=== PATIENT | female | born 1940 | race Caucasian/White ===

== ENCOUNTER 2017-06-06 10:01 | Emergency (ER) | payer OTHER ==
--- NOTE | 2017-06-06 10:35 | EDPHY ---
H & P Stated Complaint: RLQ/back pain Time Seen by Provider: 06/06/17 10:35 HPI/ROS: CHIEF COMPLAINT: Right lower quadrant pain HISTORY OF PRESENT ILLNESS: The patient presents to the ED with acute right lower quadrant pain which began approximately an hour prior to arrival. The patient denies any nausea, vomiting, diarrhea or dysuria. Her past medical history is significant for appendicitis. The patient reports she has multiple medication allergies. The patient takes no regular prescription medications. She has not had no history of fever, cough or congestion. She denies significant constipation. The patient reports her pain is currently an 8/10. The patient is declining an IV, laboratory testing or IV pain medications. REVIEW OF SYSTEMS: A comprehensive 10 point review of systems is otherwise negative aside from elements mentioned in the history of present illness. Source: Patient Exam Limitations: No limitations - Personal History Current Tetanus/Diphtheria Vaccine: Yes Current Tetanus Diphtheria and Acellular Pertussis (TDAP): Yes Tetanus Vaccine Date: will not take - Medical/Surgical History Hx Asthma: Yes Hx Chronic Respiratory Disease: No Hx Diabetes: No Hx Cardiac Disease: No Hx Renal Disease: No Hx Cirrhosis: No Hx Alcoholism: No Hx HIV/AIDS: No Hx Splenectomy or Spleen Trauma: No Other PMH: CVA with left sided weakness, Right THR, Appendectomy, HTN, Multi allergies/sensitivities, speed shock, weak kidneys, [employer] surg - Social History Smoking Status: Never smoked - Physical Exam Exam: General Appearance: Alert, no distress Eyes: Pupils equal and round no pallor or injection ENT, Mouth: Mucous membranes moist Respiratory: There are no retractions, lungs are clear to auscultation Cardiovascular: Regular rate and rhythm Gastrointestinal: Minimal tenderness to palpation right lower quadrant, minimal right CVA tenderness Neurological: A&O, normal motor function, normal sensory exam, normal cranial nerves Skin: Warm and dry, no rashes Musculoskeletal: Neck is supple nontender Extremities: symmetrical, full range of motion Constitutional: Initial Vital Signs Temperature (C) 36.8 C 06/06/17 10:08 Heart Rate 64 06/06/17 10:08 Respiratory Rate 22 H 06/06/17 10:08 O2 Sat (%) 94 06/06/17 10:08 O2 Delivery Mode Nasal Cannula Allergies/Adverse Reactions: cortisone [Cortisone] Allergy (Unknown, Verified 01/25/13 09:24) adhesive Allergy (Verified 03/16/14 18:10) latex Allergy (Verified 03/16/14 18:10) NSAIDS (Non-Steroidal Anti-Inflamma Allergy (Verified 03/27/14 23:31) STEROIDS Allergy (Unknown, Uncoded 01/25/13 09:24) BARBITURATE Allergy (Uncoded 01/25/13 09:24) MOLDS Allergy (Uncoded 03/16/14 18:14) NYCINS Allergy (Uncoded 01/25/13 09:24) POLLENS Allergy (Uncoded 03/16/14 18:14) Home Medications: Medication Instructions Recorded Herbals/Supplements -Info Only 1 each PO AD 06/28/13 Medical Decision Making - Diagnostics Imaging Results: Imaging Impressions Abdomen/Pelvis CT 06/06/17 10:58 Impression: 1. No hydronephrosis or ureteral calculi to explain pain. 2. Constipation. 3. Equivocal rectal mass at the anal verge versus stool. 4. Cholelithiasis. No CT evidence of acute cholecystitis. 5. Demineralization. No acute compression fracture. Findings discussed with Emergency Department physician, Dr. Suleman Loo on June 06, 2017 at 1140 hours. Attention: This CT examination is specifically designed to evaluate patients who are clinically suspected of having acute obstructive uropathy. This examination does not use radiographic contrast, and as such, provides only a limited evaluation of the abdomen, pelvis and retroperitoneum. If there is further clinical suspicion for pathological conditions other than obstructive uropathy, a complete CT evaluation of the abdomen and pelvis utilizing intravenous, oral, and rectal contrast should be considered. ED Course/Re-evaluation: The patient presents to the ED for evaluation of acute right lower quadrant pain which began prior to arrival. The patient has a mild tenderness noted on examination. The patient's vital signs are stable. The patient was taken for noncontrast CT scan of the abdomen pelvis which demonstrates constipation but no evidence of obvious ureterolithiasis or right-sided at all pathology. The patient's urine dipstick is negative for evidence of infection or hematuria. I re-evaluated the patient at 12:40 p.m.. She reports she is currently pain- free. Her abdominal examination is reassuring. At this point time I do not feel that further workup is indicated. She is comfortable being discharged home and returning to the ED for any recurrent abdominal pain. Differential Diagnosis: Differential diagnosis considered includes perforation, obstruction, ureterolithiasis, pyelonephritis, constipation Departure - Departure Disposition: Home, Routine, Self-Care Clinical Impression: Right lower quadrant abdominal pain Condition: Good Instructions: Abdominal Pain (ED) Additional Instructions: Sometimes we are unable to diagnose an obvious cause of abdominal pain in the Emergency Department. Based upon our evaluation today, we see no obvious explanation for your pain. Because more serious conditions can be difficult to diagnose early in the course of their presentation, we ask that you return to the Emergency Department in 8-12 hours for a recheck if you are still having pain. This is necessary to exclude the development of a more serious condition such as appendicitis or other intra-abdominal emergency. In the event your pain markedly increases before that time or you develop intractable vomiting or fever return to the Emergency Department immediately. Referrals: SANDIP CORNELL [Medical Doctor] - As per Instructions
--- NOTE | 2017-06-06 13:00 | ASDISCHSUM ---
Discharge Information Plan Status:Home with No Needs Medically Cleared to Leave: Discharge Date: CM D/C Disposition:Home, Routine, Self-Care ADT D/C Disposition:Home, Routine, Self-Care Projected Discharge Date: Transportation at D/C:None or Unknown Discharge Delay Reason: Follow-Up Date: Discharge Slot: Final Diagnosis: Placement Information Patient Contact Information Contact Name:MARIA ESTHER Relationship:Nat Address: Work Phone: City: [facility] Phone: State/[place] Code: Email: Financial Information Financial Class: Primary Plan Desc:MEDICARE OUTPATIENT Primary Plan Number:[id number] Secondary Plan Desc:[employer] Secondary Plan Number:[id number] Assessment Information LACE LACE Acuity / Level of Care Answers: No. Comorbidities - select Answers: Cerebrovascular disease all that apply Mild liver or renal disease Emergency dept visits in Answers: 1 last 6 months Score: 4 Date Signed: 06/06/2017 12:57 PM Electronically Signed By:Suyapa Killian RN Intervention Information
[2017-06-06 13:19] VITALS: PULSE 68; RESP 16; TEMP 97.9; O2SAT 95
== END 2017-06-06 13:19 | disposition home or self-care (01) ==
DX: R10.31 Right lower quadrant pain (principal); J45.909 Unspecified asthma, uncomplicated; I10 Essential (primary) hypertension; Z86.73 Personal history of transient ischemic attack (TIA), and cerebral infarction without residual deficits; Z90.49 Acquired absence of other specified parts of digestive tract; Z91.040 Latex allergy status

== ENCOUNTER 2018-03-14 11:52 | Emergency (ER) | payer OTHER ==
[2018-03-14 12:01] VITALS: BP 151/64
--- NOTE | 2018-03-14 12:32 | EDPHY ---
H & P Stated Complaint: l foot inj Time Seen by Provider: 03/14/18 12:27 Source: Patient Exam Limitations: No limitations - Personal History Current Tetanus Diphtheria and Acellular Pertussis (TDAP): No Tetanus Vaccine Date: will not take - Medical/Surgical History Hx Asthma: Yes Hx Chronic Respiratory Disease: No Hx Diabetes: No Hx Cardiac Disease: No Hx Renal Disease: No Hx Cirrhosis: No Hx Alcoholism: No Hx HIV/AIDS: No Hx Splenectomy or Spleen Trauma: No Other PMH: CVA with left sided weakness, Right THR, Appendectomy, HTN, Multi allergies/sensitivities, speed shock, weak kidneys, [employer] surg - Social History Smoking Status: Never smoked Constitutional: Initial Vital Signs Temperature (C) 36.4 C 03/14/18 11:58 Heart Rate 80 03/14/18 11:58 Respiratory Rate 17 03/14/18 11:58 Blood Pressure 151/64 H 03/14/18 11:58 O2 Sat (%) 98 03/14/18 11:58 O2 Delivery Mode Room Air Allergies/Adverse Reactions: cortisone [Cortisone] Allergy (Unknown, Verified 03/14/18 11:57) adhesive Allergy (Verified 03/14/18 11:57) latex Allergy (Verified 03/14/18 11:57) NSAIDS (Non-Steroidal Anti-Inflamma Allergy (Verified 03/14/18 11:57) STEROIDS Allergy (Unknown, Uncoded 01/25/13 09:24) BARBITURATE Allergy (Uncoded 01/25/13 09:24) MOLDS Allergy (Uncoded 03/16/14 18:14) NYCINS Allergy (Uncoded 01/25/13 09:24) POLLENS Allergy (Uncoded 03/16/14 18:14) Home Medications: Medication Instructions Recorded Herbals/Supplements -Info Only 1 each PO AD 06/28/13 Medical Decision Making - Diagnostics Imaging Results: Imaging Impressions Foot X-Ray 03/14/18 12:24 Impression: Negative for fracture. Procedures: Procedure: Splint placement. A left Villa boot was applied by the Emergency Room precision agriculture technician. After application of the splint I returned and re-examined the patient. The splint was adequately immobilizing the joint and distal to the splint the patient's circulation and sensation was intact. ED Course/Re-evaluation: X-rays my read via PAC show no fracture, dislocation Placed in Villa boot, orthopedic follow-up No signs of neurovascular compromise/tenting of skin/compartment syndrome/ extremities and joints examined above and below area of concern and are neurovascularly intact. This patient was seen under the supervision of my secondary supervising physician. I evaluated care for this patient independently. Discussed this patient with Dr. Loo. Differential Diagnosis: Ankle injury differential diagnosis includes but is not limited to tibia fracture, fibula fracture, metatarsal fracture, LisFranc fracture, achilles tendon rupture, sprain. Departure - Departure Disposition: Home, Routine, Self-Care Clinical Impression: Sprain of left foot Qualifiers: Encounter type: initial encounter Qualified Code(s): S93.602A - Unspecified sprain of left foot, initial encounter Condition: Good Instructions: Foot Sprain (ED) Additional Instructions: Wear the boot while out of bed until pain free. Take Tylenol 650 mg every 4 hours and/or Ibuprofen 600 mg every 8 hours with food as needed for pain. Apply ice for 30 minutes at a time; 2-3 times per day for the next 1-2 days. Follow up with Orthopedics in 1-2 weeks if symptoms persist at which time they will evaluate and recommend with you if conservative management versus further imaging is indicated. The x-rays obtained in the emergency department today demonstrate no evidence of an obvious fracture. Sometimes fractures are not obvious on the initial set of x-rays performed in the ED. For this reason, you should have repeat x-rays performed in 7-10 days if you are having any pain exclude the possibility of an occult fracture. Referrals: SANDIP CORNELL [Primary Care Provider] - As per Instructions Anthony Ortiz MD [Medical Doctor] - As per Instructions
== END 2018-03-14 12:58 | disposition home or self-care (01) ==
DX: S93.602A Unspecified sprain of left foot, initial encounter (principal); I69.354 Hemiplegia and hemiparesis following cerebral infarction affecting left non-dominant side; I10 Essential (primary) hypertension; Y93.9 Activity, unspecified
CPT/HCPCS: 73630; 99283; L4386